=== PATIENT | male | born 1970 | race Caucasian/White ===

== ENCOUNTER 2024-03-24 13:44 | Outpatient (AMB) | payer OTHER, SELFPAY ==
[2024-03-24 13:47] VITALS: BP 152/92; PULSE 86; O2SAT 97; BMI 29.7
--- NOTE | 2024-03-24 13:47 | MHC.PC.OV ---
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: No Accompanied by: Self / Same As Patient Allergies No Known Allergies [No Known Allergies*] Allergy (Verified 03/24/24 13:48) Medication List - Last Reconciled 03/24/24 by Christopher Pelayo MD apixaban (Eliquis) 5 mg PO BID Tobacco use date assessed: 03/24/24 Dental Screening Dental Screen Date: 03/24/24 Did you have a dental visit in the last 12 months?: Yes Did you have a dental problem in the last 6 months where you did not have access to dental care?: No Was dental information given to patient?: Patient has dentist HPI annual exam HPI Details [facility] emb on rx; [facility] Medical History (Updated 03/24/24 @ 14:56 by Christopher Pelayo MD) Pulmonary embolism Surgical History No history of previous surgery Family History (Updated 03/24/24 @ 13:48 by Allie Chacon CMA) Mother Breast cancer Father High cholesterol Brother Colon cancer Social History Housing: House Alcohol intake: current Alcohol intake frequency: a few times a month Alcohol type: wine Patient Tobacco Use Status: Former Tobacco user Tobacco use type: Cigarette e-Cigarette/Vaping Use: Never Used Second Hand Smoke Exposure: No service: No Current occupational status: employed Cognitive needs: No Hearing needs: No Vision needs: No Questionnaire PHQ-9 Over the last 2 weeks, how often have you been bothered by any of the following problems? 1. Little interest or pleasure in doing things: not at all 2. Feeling down, depressed, or hopeless: not at all 3. Trouble falling or staying asleep, or sleeping too much: more than half the days 4. Feeling tired or having little energy: several days 5. Poor appetite or overeating: not at all 6. Feeling bad about yourself - or that you are a failure or have let yourself or your family down: not at all 7. Trouble concentrating on things, such as reading the newspaper or watching television: more than half the days 8. Moving or speaking so slowly that other people could have noticed. Or the opposite - being so fidgety or restless that you have been moving around a lot more than usual: not at all 9. Thoughts that you would be better off or of hurting yourself in some way: not at all Total score: 5 Source: Developed by Drs. Juan Jacobson, Vanita Bustillos, Ryne Quiles and colleagues, with an educational edwin from [employer]. Thrive Questionnaire Date Thrive assessed: 03/24/24 I am a: Patient What is your living situation today?: I have a steady place to live Within the past 12 months, did the food you bought not last and you didn't have the money to get more?: Never true Within the past 12 months, did you worry whether your food would run out before you got money to buy more?: Never true Do you have trouble paying for medicines?: No Do you have trouble getting transportation to medical appointments?: No Do you have trouble paying your heating and electricity bill?: No Do you have trouble taking care of your child, family member or friend?: No Do you have trouble with day-to-day activities such as bathing, preparing meals, shopping, managing finances, etc.?: No Are you currently unemployed and looking for a job?: No Are you interested in more education?: No Please select the resources that you would like help with: None Currently or been in a relationship where the following occur: I choose not to answer THRIVE Score: 0 AUDIT C Alcohol Use Questionnaire (AUDIT-C) 1. How often do you have a drink containing alcohol?: Monthly or less 2. How many drinks containing alcohol do you have on a typical day when you are drinking?: 1 or 2 3. How often do you have six or more drinks on one occasion?: Never Total Score: 1 LOVE-7 AMB Questionnaire LOVE-7 Date LOVE - 7 assessed: 03/24/24 Feeling nervous, anxious, or on edge: 0 = Not at all Not being able to stop or control worryin = Not at all Worrying too much about different things: 0 = Not at all Trouble relaxin = Not at all Being so restless that it is hard to sit still: 0 = Not at all Becoming easily annoyed or irritable: 1 = Several days Feeling afraid as if something awful might happen: 0 = Not at all Total LOVE-7 score (0-4 normal; 5-9 mild; 10-14 moderate; 15-21 severe): 1 Source: Developed by Drs. Juan Jacobson, Vanita Bustillos, Ryne Quiles and colleagues, with an educational edwin from [employer]. Review of Systems Const Denies chills, Denies fatigue, Denies headache(s) and Denies weight loss Eyes Denies change in vision, Denies diplopia and Denies eye pain ENT Denies vertigo, Denies dizziness, Denies headache(s) and Denies nasal discharge Card Denies chest pain, Denies rapid heart rate and Denies dyspnea on exertion Resp Denies chest congestion, Denies cough, Denies pain with cough and Denies dyspnea on exertion GI Denies abdominal pain, Denies hematochezia and Denies change in bowel habits Musc Denies myalgias, Denies arthralgias and Denies joint swelling Skin/Breast Denies lesions and Denies unusual bruising Neuro Denies vertigo, Denies dizziness, Denies headache(s) and Denies focal weakness Endo Denies fatigue Physical exam (Primary Care) Vital Signs: Last Vital Signs Pulse 86 03/24/24 13:47 BP 152/92 H 03/24/24 13:47 Pulse Ox 97 03/24/24 13:47 Oxygen Delivery Method Room Air 03/24/24 13:47 BMI result Body Mass Index 29.7 Tobacco/Smoking Status: Tobacco use Status Tobacco use date assessed 03/24/24 03/24/24 13:51 Patient Tobacco Use Status Former Tobacco user 03/24/24 13:51 Tobacco use type Cigarette 03/24/24 13:51 e-Cigarette/Vaping Use Never Used 03/24/24 13:51 PHQ-9: PHQ-9 Score PHQ-9: Total score 5 03/24/24 14:16 Thrive Assessment: Date of Thrive Assessment Date Thrive assessed 03/24/24 03/24/24 13:51 Currently or been in a relationship where the following occur: I choose not to answer Const General: cooperative, healthy appearing and no acute distress Orientation/consciousness: oriented to person, oriented to place and oriented to time HENMT Head: Yes normal to inspection, Yes normocephalic and Yes atraumatic Mouth: Normal oral and palatal mucosa present and tongue normal Throat: Yes posterior oropharynx normal and Yes uvula midline Eyes General: appearance normal, both eyes and all related structures Neck Neck: Yes normal visual inspection, Yes full ROM and Yes no lymphadenopathy Thyroid: Thyroid normal Carotids: normal carotid upstroke Chest Chest palpation & inspection: normal inspection of the chest Resp Effort & Inspection: normal respiratory effort and able to speak in complete sentences Auscultation: clear to auscultation bilaterally Cardio Jugular venous distension: no JVD Palpation: normal PMI Rate: regular rate Rhythm: regular rhythm Heart sounds: S1 normal heart sound present and S2 normal heart sound present GI Inspection: Yes normal to inspection Palpation (GI): Soft to palpation and No hepatosplenomegaly present Auscultation: normal bowel sounds General: Yes no CVA tenderness Back/Spine/Pelvis Back: no CVA tenderness Skin General skin exam: no rashes or lesions noted Neuro General: oriented to person, oriented to place and oriented to time Extrem General: Yes normal to inspection and Yes full ROM Office Procedures Flu Questionnaire Does the patient have a severe egg allergy?: No Does the patient have severe life threatening allergies?: No Does the patient have a fever or illness today?: No Has the patient ever had Guillain-Lomita Syndrome?: No Has the patient ever had any past reaction to a flu shot?: No Immunizations Fluarix Triv [id number] (PF) 45 mcg (15 mcg x 3)/0.5 mL IM syringe Performing Provider: Christopher Pelayo MD [facility] Administered by: Allie Chacon CMA on 03/24/24 14:18 Dose Route Admin Location Dispensed Lot Number Expiration Date [facility] Commercial Maintenance Technician 0.5 mL IM Left Deltoid 0.5 mL [id number] 10/12/24 [id number] [employer] VIS Given Date VIS Provided VIS Publication Date 03/24/24 Single Vaccine 20 Eligibility Eligibility Date Funding Source Not [facility] Eligible 03/24/24 Private Coding Level of Care Code Est Pt Prev Care 40-64y(41214) Diagnoses Physical exam Z00.00 Pulmonary embolism I26.99 Assessment & Plan Assessment & Plan (1) Physical exam: Code(s): Z00.00 - Encounter for general adult medical examination without abnormal findings Category: Medical Plan: do labs (2) Pulmonary embolism: Code(s): I26.99 - Other pulmonary embolism without acute cor pulmonale Category: Medical Plan: stable; same rx Orders: Orders Lipid Panel Today Z13.220 - Encounter for screening for lipoid disorders Thyroid Stimulating Hormone Today Z13.29 - Encounter for screening for other suspected endocrine disorder Comprehensive [place]. Panel Fast Today Z13.9 - Encounter for screening, unspecified RT home sleep study Today R06.81 - Apnea, not elsewhere classified Influenza [id number] Immunization Today Z23 - Encounter for immunization Complete Blood Count Auto Diff Today Z13.0 - Encounter for screening for diseases of the blood and blood-forming organs and certain disorders involving the immune mechanism
== END 2024-03-24 14:19 | disposition home or self-care (01) ==
PROVIDERS: PCP Internal Medicine; Visit Provider Internal Medicine
DX: Z00.00 Encounter for general adult medical examination without abnormal findings (principal); I26.99 Other pulmonary embolism without acute cor pulmonale; Z23 Encounter for immunization

== ENCOUNTER → 2024-03-24 13:44 | Outpatient (BNVA) | payer OTHER, SELFPAY | PROVIDERS: PCP Internal Medicine; Visit Provider Internal Medicine | DX: Z00.00 Encounter for general adult medical examination without abnormal findings (principal); Z23 Encounter for immunization; I26.99 Other pulmonary embolism without acute cor pulmonale | CPT/HCPCS: 90471; 90656; 96127; 99396 ==

== ENCOUNTER → 2024-04-30 08:53 | Outpatient (REF) | payer OTHER, SELFPAY ==
[2024-04-30 09:24] LABS: MANUAL DIFF FLAG NO
[2024-04-30 09:29] LABS: Basophils Percent Auto 0.4 % (0-2); Eosinophils Absolute Auto 0.2 X10*3/uL (0.0-0.4); Eosinophils Percent Auto 2.9 % (0-4); Hematocrit 45.7 % (42.0-52.0); Hemoglobin 15.3 g/dl (14.0-18.0); Imm Gran Abs Auto 0.02 X10*3/uL (0.00-0.03); Imm Gran Pct Auto 0.3 % (0.0-0.4); Lymphocytes Absolute Auto 1.7 X10*3/uL (1.2-4.9); Lymphocytes Percent Auto 23.8 % (20-40); Mean Corpuscular HGB Conc 33.5 g/dl (31.0-36.0); Mean Corpuscular Hemoglobin 29.9 pg (27.0-33.0); Mean Corpuscular Volume 89.4 fL (80.0-98.0); Mean Platelet Volume 8.6 fL (9.4-12.4); Monocytes Absolute Auto 0.6 X10*3/uL (0.1-1.2); Monocytes Percent Auto 8.2 % (2-11); Neutrophils Absolute Auto 4.5 x10*3/uL (2.0-8.3); Neutrophils Percent Auto 64.4 % (45-73); Platelet Count 213 X10*3/uL (160-400); Red Blood Count 5.11 X10*6/uL (4.60-5.80); Red Cell Distribution Width 13.2 % (11.0-16.0); White Blood Count 6.9 X10*3/uL (4.8-10.8)
[2024-04-30 10:42] LABS: Alanine Aminotransferase 29 U/L (0-40); Albumin Level 4.5 g/dL (3.5-5.0); Anion Gap 13 (12-20); Aspartate Amino Transferase 29 U/L (5-37); Bilirubin Total 0.6 mg/dL (0.0-1.0); Blood Urea Nitrogen 20 mg/dL (9-16); Carbon Dioxide 31 mmol/L (22-29); Chloride 105 mmol/L (96-108); Cholesterol 207 mg/dL (<200); Estimated Glomerular Filt Rate > 60; Glucose Fasting 108 mg/dL (60-99); HDL Cholesterol 36 mg/dL (>40); LDL Cholesterol Calculated 121 mg/dL (<100); Potassium 4.9 mmol/L (3.3-5.1); Sodium 144 mmol/L (135-145); Total Protein 8.1 g/dL (6.5-8.0); Triglycerides 253 mg/dL (<150)
[2024-04-30 11:12] LABS: Alkaline Phosphatase 62 U/L (39-117)
== END ==
LOC: HO.SL 08:53
PROVIDERS: PCP Internal Medicine; Visit Provider Internal Medicine
DX: R06.81 Apnea, not elsewhere classified (principal); Z13.220 Encounter for screening for lipoid disorders; Z13.29 Encounter for screening for other suspected endocrine disorder; Z13.0 Encounter for screening for diseases of the blood and blood-forming organs and certain disorders involving the immune mechanism
CPT/HCPCS: 36415; 80053; 80061; 84443; 85025; 95806

== ENCOUNTER → 2024-04-30 09:46 | Outpatient (BNV) | payer OTHER, SELFPAY | PROVIDERS: PCP Internal Medicine; Visit Provider Internal Medicine | DX: G47.33 Obstructive sleep apnea (adult) (pediatric) (principal) | CPT/HCPCS: 95806 ==

== ENCOUNTER 2024-06-19 10:24 | Outpatient (REF) | payer OTHER, SELFPAY ==
--- OUTSIDE RECORDS SUMMARY | 2024-06-19 11:41 | XMS_ITS | Clinical Summary ---
Author Organization [facility] Address [address] [place] [address] Care Team Providers Care Third Rail Installer Name Role Phone Shayan Prasad MD Primary Care Provider Social History Tobacco Use Types Packs/Day Years Used Date Smoking Tobacco: Former Smokeless Tobacco: Never Alcohol Use Standard Drinks/Week Comments Not Currently 0 (1 standard drink = 0.6 oz pur e alcohol) Sex and Gender Information Value Date Recorded Sex Assigned at Not on file Legal Sex Male 10:15 PM EST Gender Identity Not on file Sexual Orientation Not on file Obstetrics History Last Filed Vital Signs Vital Sign Reading Time Taken Comments Blood Pressure 176/94 08/25/2023 9:48 AM EDT Pulse 99 08/25/2023 9:48 AM EDT Temperature - - Respiratory Rate - - Oxygen Saturation - - Inhaled Oxygen Concentration - - Weight 77.6 kg (171 lb) 11/14/2021 9:10 AM EDT Height 170.2 cm (5' 7 ) 11/14/2021 9:10 AM EDT Body Mass Index 26.78 11/14/2021 9:10 AM EDT Plan of Treatment Health Maintenance Due Date Last Done Comments DTaP,Tdap,and Td Vaccines (1 - Tdap) 1989 Hepatitis B Vaccines (1 of 3 - 19+ 3-dose series) 1989 Pneumococcal Vaccine: 50+ Ye ars (1 of 1 - PCV) 2020 Zoster Vaccines (1 of 2) 2020 Cholesterol Screening (Lipid Panel) 03/17/2022 Colorectal Cancer Screening: Colonoscopy 03/17/2022 Depression Screening 03/17/2022 HIV Screening 03/17/2022 Hepatitis C Screening 03/17/2022 Social Influencers of Health Screening 03/17/2022 COVID-19 Vaccine (1 - 2023-2 5 season) 2023 Influenza Vaccine (#1) 2023 HIB Vaccines Aged Out No longer eligi ble based on patient's age to complete this topic HPV Vaccines Aged Out No longer eligi ble based on patient's age to complete this topic Hepatitis A Vaccines Aged Out No long er eligible based on patient's age to complete this topic IPV Vaccines Aged Out No longer eligi ble based on patient's age to complete this topic MMR Vaccines Aged Out No longer eligi ble based on patient's age to complete this topic Meningococcal ACWY Vaccine Aged Out N o longer eligible based on patient's age to complete this topic Meningococcal B Vacine Aged Out No lo nger eligible based on patient's age to complete this topic Pneumococcal Vaccine: Pediat rics (0 to 5 Years) and At-Risk Patients (6 to 64 Years) Aged Out No longer eligible b ased on patient's age to complete this topic RSV Immunization Patients Un whit[place] 20 months Aged Out No longer eligible b ased on patient's age to complete this topic Varicella Vaccines Aged Out No longer eligible based on patient's age to complete this topic Care Teams Third Rail Installer Relationship Specialty Start Date End Date Shayan Prasad MD [address] [place] [address] [address] DONAVAN Govea PCP - General 09/05/23
--- OUTSIDE RECORDS SUMMARY | 2024-06-19 11:41 | XMS_ITS | Clinical Summary ---
Author Organization [facility] Address [address] [place] [address] Care Team Providers Care Chuck Wagon Cook Name Role Phone Unavailable Primary Care Provider Unavailabl e Source Comments PLEASE NOTE, if this patient is a minor, it may be UNLAWFUL to discuss sensitive information that is contained in these records (such as FAMILY PLANNING, MENTAL HEALTH or SUBSTANCE ABUSE) with the minor patient's parent or other person without the patient's specific authorization.[facility] Immunizations Name Administration Dates Next Due MODERNA COVID-19 VACCINE BIVALENT, BLUE CAP, 6M+ 02/24/2022 Social History Tobacco Use Types Packs/Day Years Used Date Smoking Tobacco: Never Assessed Sex and Gender Information Value Date Recorded Sex Assigned at Not on file Legal Sex Male 8:53 AM PST Gender Identity Not on file Sexual Orientation Not on file Plan of Treatment Health Maintenance Due Date Last Done Comments Diabetes Screening 1970 Hepatitis C Screening 1970 Lipid Screening 1970 Tobacco Screening 1970 HIV Screening 1985 Annual Preventive Care Visit 1988 Hypertension Screening (#1) 1988 Imm-Hepatitis B (1 of 3 - 19 + 3-dose series) 1989 CT Colonography 07/06/2015 Colonoscopy 07/06/2015 Colorectal Cancer Screening 07/06/2015 FIT/gFOBT 07/06/2015 Fecal DNA 07/06/2015 Flexible Sigmoidoscopy 07/06/2015 Imm-Zoster, Recombinant (1 of 2) 2020 [id number] ( season) 2023 02/24/2022, 02/24/2021, 08/06/2020, Additional history exists Imm-Influenza (#1) 2023 01/30/2022, 0 05/28/2019, 03/07/2018, Additional history exists Alcohol and Drug Screen 04/15/2024 Depression Annual Screen 04/15/2024 Imm-DTaP/Tdap/Td (2 - Td or Tdap) 12/04/2027 018 Insurance [facility] Member Subscriber Plan / Payer (Ef fective 2022-Present) Name:Domo Parkinson Relation to Subscriber:Self Name:Domo Parkinson Payer ID:[id number] Group ID:[id number] Type:Medicaid Address: [facility] [address] [place] [address]
--- OUTSIDE RECORDS SUMMARY | 2024-06-19 11:41 | XMS_ITS | Clinical Summary ---
Author Organization [facility] Address [address] [place] [address] Care Team Providers Care Television Service Engineer Name Role Phone Christopher Pelayo MD Primary Care Provider [phone] Allergies No known active allergies Medications Medication Sig Dispensed Refills Start Date End Date Status apixaban (Eliquis) 5 MG TABS tablet Take 5 mg by mouth every 12 (twelve) hours. 0 Active buprenorphine-naloxone (SUBOXONE) 8-2 MG SU[address] SL tablet Place 1 tablet under the tongue daily. 0 Active Active Problems No known active problems Social History Tobacco Use Types Packs/Day Years Used Date Smoking Tobacco: Former Smokeless Tobacco: Never Alcohol Use Standard Drinks/Week Comments Not Currently 0 (1 standard drink = 0.6 oz pur e alcohol) Sex and Gender Information Value Date Recorded Sex Assigned at Not on file Gender Identity Not on file Sexual Orientation Not on file Job Start Date Occupation Industry Not on file Not on file Not on file Last Filed Vital Signs Vital Sign Reading Time Taken Comments Blood Pressure 148/83 11/14/2021 9:10 AM EDT Pulse 83 11/14/2021 9:10 AM EDT Temperature 36.5 ??C (97.7 ??F) 11/14/2021 9:10 AM ED T Respiratory Rate - - Oxygen Saturation 100% 11/14/2021 9:10 AM EDT Inhaled Oxygen Concentration - - Weight 77.6 kg (171 lb) 11/14/2021 9:10 AM EDT Height 170.2 cm (5' 7 ) 11/14/2021 9:10 AM EDT Body Mass Index 26.78 11/14/2021 9:10 AM EDT Plan of Treatment Health Maintenance Due Date Last Done Comments Hepatitis B Vaccines (1 of 3 - 3-dose series) 1970 Hepatitis C Screening 1970 COVID-19 Vaccine (#1) 01/05/1971 Depression Screening 1982 Preventative Health Evaluation 1988 DTap / Tdap / Td (1 - Tdap) 1989 Colon Cancer Screening (Colonoscopy) 07/06/2015 Shingrix-Zoster Vaccine (1 of 2) 2020 Influenza Vaccine (#1) 2023 Pneumococcal Vaccine Aged Out No long er eligible based on patient's age to complete this topic RSV Ped < 20 months Aged Out No longe r eligible based on patient's age to complete this topic Care Teams Television Service Engineer Relationship Specialty Start Date End Date Christopher Pelayo MD [address] [place] [address] [place] [address] PCP - General Internal Medicine 12/13/20
[2024-06-28 00:39] LABS: Testosterone, Total 205 ng/dL (250-1100)
== END 2024-06-19 10:25 | disposition home or self-care (01) ==
LOC: HO.LAB 10:24
PROVIDERS: PCP Internal Medicine; Visit Provider Internal Medicine
DX: R53.83 Other fatigue (principal)
CPT/HCPCS: 36415; 84402; 84403

== ENCOUNTER 2024-08-10 07:34 | Outpatient (AMB) | payer OTHER, SELFPAY ==
[2024-08-10 07:36] VITALS: BP 156/94; PULSE 82; O2SAT 96; BMI 28.9
--- NOTE | 2024-08-10 07:36 | MHC.OFFVIS ---
Vital Signs 08/10/24 07:36 Height 5 ft 6 in Weight 179 lb 3.773 oz BMI 28.9 BP 156/94 H Blood Pressure Location Lt brachial Position Sitting Pulse 82 Pulse Source Pulse Oximeter Pulse Oximetry (%) 96 Oxygen Delivery Method Room Air Intake Visit Reasons: Other specified abnormal findings of blood chem Intake Note: New patient present today for other specified abnormal findings of blood chemistry. Business Liaison Officer Required: No Accompanied by: Self / Same As Patient Allergies No Known Allergies [No Known Allergies*] Allergy (Verified 08/10/24 07:40) Medication List - Last Reconciled 08/10/24 by Marilynn Santamaria MD apixaban (Eliquis) 5 mg PO BID sildenafil (Viagra) 50 mg PO DAILY PRN HPI Comments Details: 54-year-old male here today for initial evaluation of low testosterone levels. has history of PE on elequis, spontaneous PE . Labs from 06/19/2024 done at 10:30 showed total testosterone of 205 which is low and free testosterone by dialysis low at 34. 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 , identifies as heterosexual Ejaculation: normal Decreasing facial hair: none Decreased muscle mass: yes feels some decrease , does landsacping feels reduced strength Low mood: yes Low energy:yes Lack of motivation: yes Decreased endurance:yes Breast enlargement: Current genitalia status change: Puberty/milestones: Fertility: 22 years son with karin sleeps 9 pm to 6 30 am, wakes up 4 times throughout the night, once for urination , but also a light sleeper sleep study April 2024,has mild obstructive sleep apnea Breast enlargement: none Headaches: none Vision changes: none Nipple discharge:none Thyroid review of systems: Patient currently denies heat or cold intolerance, diarrhea or constipation, hair loss, palpitation, anxiety, weight changes, mood changes, low energy, changes in appearance of eyes or vision changes, tremors, increased diaphoresis or dry skin. ? Sense of smell: none Change in shoe size: none Changing in ring size: none History of trauma: none History of radiation: none Lower urinary tract symptoms: none History of sleep apnea: yes Weight changes: none Use of opiates:none None drug use: none Alcohol use disorder: 3-4 drinks per month quit smoking 2009 , smoked for 20 years Physical exam General: sitting comfortably in no acute distress HEENT: normocephalic/atraumatic, Neck: supple, symmetrical, no thyromegaly Cardiac: normal heart sounds Pulm: normal breath sounds B/L, no added breath sounds Abd: not distended, no tenderness Extremities: no edema, no signs of myxedema Neuro: AAO x3, Speech: normal, no facial droop, moving all 4 extremities Laboratory Tests 04/30/24 06/19/24 09:21 10:32 Hgb 15.3 Hct 45.7 Total Protein 8.1 H Triglycerides 253 H Cholesterol 207 H LDL Cholesterol, Calc 121 H HDL Cholesterol 36 L TSH 2.20 Total Testosterone 205 L Fr Testosterone Dialys 34.0 L PFSH Medical History (Updated 07/01/24 @ 10:54 by Christopher Pelayo MD) Pulmonary embolism Surgical History No history of previous surgery Family History Mother Breast cancer Father High cholesterol Brother Colon cancer Social History Housing: House Alcohol intake: current Alcohol intake frequency: a few times a month Alcohol type: wine Patient Tobacco Use Status: Former Tobacco user Tobacco use type: Cigarette e-Cigarette/Vaping Use: Never Used Second Hand Smoke Exposure: No service: No Current occupational status: employed Cognitive needs: No Hearing needs: No Vision needs: No Physical Exam Vital Signs: Last Vital Signs Pulse 82 08/10/24 07:36 BP 156/94 H 08/10/24 07:36 Pulse Ox 96 08/10/24 07:36 Oxygen Delivery Method Room Air 08/10/24 07:36 BMI result Body Mass Index 28.9 Assessment & Plan Assessment & Plan (1) Low testosterone: Code(s): R79.89 - Other specified abnormal findings of blood chemistry Category: Medical Plan: 54-year-old male coming in today for initial evaluation of low testosterone levels. Labs from 06/19/2024 done at 10:30 showed total testosterone of 205 which is low and free testosterone by dialysis low at 34. He is bothered by symptoms of low libido, decreased energy and some decrease in erection. He has been using sildenafil a couple of times which has helped. Since his blood work was done at 10:30, I will have him repeat labs at 08:00. We will also check FSH and LH a differentiate between primary versus hypogonadotropic hypogonadism. I did discuss with the him that his BMI is on the higher side, and being overweight does cause hypogonadotropic hypogonadism so we discussed weight loss measures with both diet and exercise. We discussed lifestyle modification in detail. He also has mild obstructive sleep apnea, treatment of sleep apnea also helps with low testosterone levels. At this time we can try weight management, however if he continues to not be able to lose the weight, he could benefit from a CPAP. Otherwise no history of trauma to the head or testes. No history of radiation to the head. No opiate use. If he indeed does have low testosterone levels, given history of pulmonary embolism, currently on Eliquis, I would have concerns about testosterone replacement therapy in him. Otherwise does not have any history of WI or stroke. No lower urinary tract symptoms. His blood pressure was also noted to be elevated today, I told him that sleep apnea can also contribute to hypertension. He does not have an official diagnosis of hypertension is not on any medications. I told him to discuss with the it was primary care physician hence he probably needs to be started on an antihypertensive medication. Plan: -ordered 08:00 fasting labs -discussed weight management with lifestyle modification -consider treatment of sleep apnea with CPAP, we will defer to PCP -PCP to evaluate for hypertension and start antihypertensive medication -follow up in 6 weeks Plan I spent 45 minutes in reviewing the record, seeing the patient and documenting in the medical record. Orders: Orders Lutenizing Hormone Today R79.89 - Other specified abnormal findings of blood chemistry Sex Hormone Binding Globulin Today R79.89 - Other specified abnormal findings of blood chemistry Testosterone, Free/Total Today R79.89 - Other specified abnormal findings of blood chemistry Bioavailable Testosterone Today R79.89 - Other specified abnormal findings of blood chemistry Follicle Stimulating Hormone Today R79.89 - Other specified abnormal findings of blood chemistry Prolactin Today R79.89 - Other specified abnormal findings of blood chemistry IRON PROFILE Today R79.89 - Other specified abnormal findings of blood chemistry Patient Instructions: Do early AM 8 AM fasting blood work Weight loss counselling ? Limit added sugars to less than 25 grams daily. There are 4.2 grams of sugar per teaspoon of sugar. A teaspoon of honey has 6 grams of sugar! Bread also can have more sugar than you think-check labels ? No soda or juices. Drink water, unsweetened iced tea or seltzer ? Limit eating out/take out or prepared meals to twice weekly at most ? Avoid red meat, hot dogs, bautista and deli meat. Substitute plant protein for animal protein as much as you can. Beans, nuts, tofu, soy milk ? Limit cheese to 1 ounce a few times weekly ? Eat high fiber foods like beans, apples and green veggies, salsa is a great snack with whole grain cracker like Wasa ? Look for the whole grain stamp when choosing bread etc. Aim for 48 grams of whole grains daily. Whole wheat does not equal whole grains! ? Don't keep tempting treats in the house. Go out once in a while for a treat. ? Don't eat anything deep fried or cream based-no sour cream 500 calorie deficit per day to aim for 1 lb weight loss per week LOSE IT ! or my fitness pal Talk to primary care about blood pressure Coding Level of Care Code New Pt Level 4 (54059) Diagnoses Low testosterone R79.89 Time Spent (min) 45
--- OUTSIDE RECORDS SUMMARY | 2024-08-10 07:38 | XMS_ITS | Clinical Summary ---
Author Organization [facility] Address [address] [place] [address] Care Team Providers Care Critical Care Unit Nurse Name Role Phone Unavailable Primary Care Provider Unavailabl e Source Comments PLEASE NOTE, if this patient is a minor, it may be UNLAWFUL to discuss sensitive information that is contained in these records (such as FAMILY PLANNING, MENTAL HEALTH or SUBSTANCE ABUSE) with the minor patient's parent or other person without the patient's specific authorization.[facility] Immunizations Immunization Administration Dates Next Due MODERNA COVID-19 VACCINE [...] Health Maintenance Due Date Last Done Comments Anxiety Screening 1970 Diabetes Screening 1970 Hepatitis C Screening 1970 Lipid Screening 1970 Tobacco Screening 1970 HIV Screening 1985 Hypertension Screening (#1) 1988 Imm-Hepatitis B (1 of 3 - 19 + 3-dose series) 1989 CT Colonography 07/06/2015 Colonoscopy 07/06/2015 Colorectal Cancer Screening 07/06/2015 FIT/gFOBT 07/06/2015 Fecal DNA 07/06/2015 Flexible Sigmoidoscopy 07/06/2015 Imm-Zoster, Recombinant (1 of 2) 2020 [id number] ( season) 2023 02/24/2022, 02/24/2021, 08/06/2020, Additional history exists Imm-Influenza (#1) 2023 01/30/2022, 0 05/28/2019, 03/07/2018, Additional history exists Alcohol and Drug Screen 04/15/2024 Depression Annual Screen 04/15/2024 Imm-DTaP/Tdap/Td (2 - Td or Tdap) 12/04/2027 018 Insurance [facility] Member Subscriber Plan / Payer (Ef fective 2022-Present) Name:Domo Parkinson Relation to Subscriber:Self Name:ParkinsonDomo maddox Payer ID:[id number] Group ID:[id number] Type:Medicaid Address: [facility] [address] [place] [address]
--- OUTSIDE RECORDS SUMMARY | 2024-08-10 07:38 | XMS_ITS | Clinical Summary ---
Author Organization [facility] Address [address] [place] [address] Care Team Providers Care Sales Representative Meats Name Role Phone Christopher Pelayo MD Primary Care Provider [phone] Allergies No known active allergies Medications Medication [...] age to complete this topic Care Teams Sales Representative Meats Relationship Specialty Start Date End Date Christopher Pelayo MD [address] [place] [address] [place] [address] PCP - General Internal Medicine 12/13/20
--- OUTSIDE RECORDS SUMMARY | 2024-08-10 07:38 | XMS_ITS | Clinical Summary ---
Author Organization [facility] Address [address] [place] [address] Care Team Providers Care Climatology Professor Name Role Phone Shayan Prasad MD Primary [...] - 2023-2 5 season) 2023 Influenza Vaccine (Season Ended) 2024 HIB Vaccines Aged Out No longer eligi [...] age to complete this topic Meningococcal B Vaccine Aged Out No l onger eligible based on patient's age to complete [...] age to complete this topic Care Teams Climatology Professor Relationship Specialty Start Date End Date Shayan Prasad MD [address] [place] [address] Dr [address] DONAVAN Govea PCP - General 09/05/23
== END 2024-08-10 08:31 | disposition home or self-care (01) ==
LOC: HO.ENCR 07:34
PROVIDERS: PCP Internal Medicine; Visit Provider Student in an Organized Health Care Education/Training Program
DX: R79.89 Other specified abnormal findings of blood chemistry (principal)
CPT/HCPCS: 99204

== ENCOUNTER → 2024-08-10 07:34 | Outpatient (BNVA) | payer OTHER, SELFPAY | PROVIDERS: PCP Internal Medicine; Visit Provider Student in an Organized Health Care Education/Training Program | DX: R79.89 Other specified abnormal findings of blood chemistry (principal) | CPT/HCPCS: 99202 ==

== ENCOUNTER 2024-08-26 08:20 | Outpatient (AMB) | payer OTHER, SELFPAY ==
--- NOTE | 2024-08-26 08:25 | A.OFFPC_ITS ---
Vital Signs 08/26/24 08:27 08/26/24 09:07 Height 5 ft 6 in Weight 173 lb BMI 27.9 BP 130/70 150/92 H Blood Pressure Location Lt brachial Lt brachial Position Sitting Sitting Pulse 68 Pulse Source Pulse Oximeter Temp 97.1 F Temp Source Temporal Artery Scan Pulse Oximetry (%) 98 Oxygen Delivery Method Room Air Intake Visit Reasons: [place] DR Pelayo/ 6 month f/u Intake Note: Patient is here today for [place] from Dr Pelayo and Pulmonary embolism Commercial Art Instructor Required: No Nurse Monitoring: Not Required per policy Accompanied by: Self / Same As Patient Allergies No Known Allergies [No Known Allergies*] Allergy (Verified 08/26/24 09:07) Medication List - Last Reconciled 08/26/24 by JUS Oneil apixaban (Eliquis) 5 mg PO BID atorvastatin 10 mg PO BEDTIME lisinopril 5 mg PO DAILY sildenafil (Viagra) 50 mg PO DAILY PRN Tobacco use date assessed: 08/26/24 Dental Screening Dental Screen Date: 08/26/24 Did you have a dental visit in the last 12 months?: Yes Did you have a dental problem in the last 6 months where you did not have access to dental care?: No Was dental information given to patient?: Patient has dentist HPI [place] DR Pelayo/ 6 month f/u HPI Details The patient is a 54-year-old male presenting to transition care from Dr. Pelayo and to follow with hypertension, hyperlipidemia, and sleep apnea concerns. He has a history of pulmonary embolism four years ago linked to Factor V Leiden mutation, for which he takes Eliquis. The patient's blood pressure readings remain high, with values such as 150/94 mmHg reported. Hypertension management and home monitoring have been discussed. There is a family history of heart disease, and the patient has untreated sleep apnea due to mild classification by insurance. The patient reports fatigue and sleep disturbances. Anxiety is mildly present, manifesting as irritability and feeling on edge. He sought an anesthesia attending for low testosterone, advised weight loss before considering hormone therapy due to embolism history. [facility] Medical History (Updated 08/26/24 @ 09:13 by JUS Oneil) Pulmonary embolism Surgical History No history of previous surgery Family History Mother Breast cancer Father High cholesterol Brother Colon cancer Social History Housing: House Alcohol intake: current Alcohol intake frequency: a few times a month Alcohol type: wine Patient Tobacco Use Status: Former Tobacco user Tobacco use type: Cigarette e-Cigarette/Vaping Use: Never Used Second Hand Smoke Exposure: Yes service: No Current occupational status: employed Cognitive needs: No Hearing needs: No Vision needs: No Questionnaire PHQ-9 Over the last 2 weeks, how often have you been bothered by any of the following problems? 1. Little interest or pleasure in doing things: not at all 2. Feeling down, depressed, or hopeless: not at all 3. Trouble falling or staying asleep, or sleeping too much: several days 4. Feeling tired or having little energy: several days 5. Poor appetite or overeating: not at all 6. Feeling bad about yourself - or that you are a failure or have let yourself or your family down: not at all 7. Trouble concentrating on things, such as reading the newspaper or watching television: not at all 8. Moving or speaking so slowly that other people could have noticed. Or the opposite - being so fidgety or restless that you have been moving around a lot more than usual: not at all 9. Thoughts that you would be better off or of hurting yourself in some way: not at all Total score: 2 Depression Screening Interpretation: Positive Depression Screening Done: Yes Source: Developed by Drs. Juan Jacobson, Vanita Bustillos, Ryne Quiles and colleagues, with an educational edwin from [employer]. Thrive Questionnaire Date Thrive assessed: 08/26/24 I am a: Patient What is your living situation today?: I have a steady place to live Within the past 12 months, did the food you bought not last and you didn't have the money to get more?: Never true Within the past 12 months, did you worry whether your food would run out before you got money to buy more?: Never true Do you have trouble paying for medicines?: No Do you have trouble getting transportation to medical appointments?: No Do you have trouble paying your heating and electricity bill?: No Do you have trouble taking care of your child, family member or friend?: No Do you have trouble with day-to-day activities such as bathing, preparing meals, shopping, managing finances, etc.?: No Are you currently unemployed and looking for a job?: No Are you interested in more education?: No Please select the resources that you would like help with: None Currently or been in a relationship where the following occur: No concerns reported THRIVE Score: 0 AUDIT C Alcohol Use Questionnaire (AUDIT-C) 1. How often do you have a drink containing alcohol?: Never 3. How often do you have six or more drinks on one occasion?: Never Total Score: 0 LOVE-7 AMB Questionnaire LOVE-7 Date LOVE - 7 assessed: 08/26/24 Feeling nervous, anxious, or on edge: 2 = More than half the days Not being able to stop or control worryin = Not at all Worrying too much about different things: 0 = Not at all Trouble relaxin = Several days Being so restless that it is hard to sit still: 0 = Not at all Becoming easily annoyed or irritable: 1 = Several days Feeling afraid as if something awful might happen: 0 = Not at all Total LOVE-7 score (0-4 normal; 5-9 mild; 10-14 moderate; 15-21 severe): 4 Source: Developed by Drs. Juan Jacobson, Vanita Bustillos, Ryne Quiles and colleagues, with an educational edwni from [employer]. Review of Systems Const Denies headache(s) and Reports lethargy Eyes Denies loss of vision ENT Denies vertigo, Denies dizziness, Denies headache(s), Reports nasal obstruction and Denies sore throat Card Denies chest pain, Denies leg edema and Denies lightheadedness Resp Denies cough, Denies hemoptysis and Denies wheezing GI Denies abdominal pain, Denies melena, Denies constipation, Denies diarrhea and Denies vomiting Denies dysuria, Denies urinary frequency and Denies urinary urgency Musc Denies arthralgias, Denies joint swelling, Denies numbness and Denies tingling Neuro Denies Abnormal speech present, Denies vertigo, Denies dizziness, Denies headache(s), Denies loss of vision, Denies memory loss, Denies numbness and Denies tingling Psych Reports anxiety (Mild-irritability often while driving), Denies depression, Denies memory loss and Denies panic attacks Arcenio/Lymph Denies easy bleeding and Denies easy bruising Aller/Immun Denies wheezing Physical exam (Primary Care) Vital Signs: Last Vital Signs Temp 97.1 F 08/26/24 08:27 Pulse 68 08/26/24 08:27 BP 130/70 08/26/24 08:27 Pulse Ox 98 08/26/24 08:27 Oxygen Delivery Method Room Air 08/26/24 08:27 BMI result Body Mass Index 27.9 Tobacco/Smoking Status: Tobacco use Status Tobacco use date assessed 08/26/24 08/26/24 08:31 Patient Tobacco Use Status Former Tobacco user 08/26/24 08:31 Tobacco use type Cigarette 08/26/24 08:31 e-Cigarette/Vaping Use Never Used 08/26/24 08:31 PHQ-9: PHQ-9 Score PHQ-9: Total score 2 08/26/24 08:31 Depression Screening Interpretation: Positive Thrive Assessment: Date of Thrive Assessment Date Thrive assessed 08/26/24 08/26/24 08:31 Currently or been in a relationship where the following occur: No concerns reported Const General: healthy appearing, no acute distress, alert and awake Nutritional Appearance: well nourished Orientation/consciousness: oriented to person, oriented to place and oriented to time HENMT Ears: TM's normal bilaterally General nose exam: Normal nasal mucous membranes and turbinates present Eyes Conjunctivae: conjunctivae normal Sclerae: sclerae normal Pupils: Equal, round and reactive pupils present Neck Neck: Yes no lymphadenopathy and Yes no JVD Thyroid: Thyroid normal Carotids: no bruits Resp Effort & Inspection: normal respiratory effort and not tachypneic Auscultation: no crackles, no rales, no rhonchi and no wheezes Cardio Rate: regular rate Rhythm: regular rhythm Heart sounds: no murmurs and normal S1 and S2 GI Palpation (GI): Soft to palpation, nontender, no hepatomegaly and no splenomegaly Auscultation: normal bowel sounds Skin General skin exam: no rashes or lesions noted and dry skin Neuro General: oriented to person, oriented to place and oriented to time Cranial nerves: Yes Equal, round and reactive pupils present Speech: No Abnormal speech present Gait exam (Neuro): Normal gait present Motor exam (neuro): no tremor noted Extrem Right upper extremity: full ROM Left upper extremity: full ROM Right lower extremity: full ROM; no edema Left lower extremity: full ROM; no edema Psych Mental Status: mental status grossly normal Speech and movement: Normal speech and movement present Affect: normal affect Attitude: cooperative Thought process: Normal thought process present Coding Level of Care Code Est Pt Level 3 (66007) Diagnoses Elevated blood pressure reading in office with diagnosis of hypertension I10 Mixed hypercholesterolemia and hypertriglyceridemia E78.2 Impaired fasting glucose R73.01 Chronic pulmonary embolism without acute cor pulmonale, unspecified pulmonary embolism type I27.82 Pulmonary embolism type: unspecified Chronicity: chronic Acute cor pulmonale presence: without acute cor pulmonale Low testosterone R79.89 Time Spent (min) 32 Assessment & Plan Assessment & Plan (1) Elevated blood pressure reading in office with diagnosis of hypertension: Code(s): I10 - Essential (primary) hypertension Category: Medical (2) Mixed hypercholesterolemia and hypertriglyceridemia: Code(s): E78.2 - Mixed hyperlipidemia Category: Medical (3) Impaired fasting glucose: Code(s): R73.01 - Impaired fasting glucose Category: Medical (4) Pulmonary embolism: Code(s): I26.99 - Other pulmonary embolism without acute cor pulmonale Category: Medical Qualifiers: Pulmonary embolism type: unspecified Chronicity: chronic Acute cor pulmonale presence: without acute cor pulmonale Qualified Code(s): I27.82 - Chronic pulmonary embolism (5) Low testosterone: Code(s): R79.89 - Other specified abnormal findings of blood chemistry Category: Medical Plan I have advised initiating lisinopril therapy at 5 mg daily to manage hypertension and atorvastatin taken at bedtime to address hyperlipidemia. The patient is to focus on weight management will help with sleep apnea. Periodic monitoring of blood pressure at home is suggested, with a follow-up in 4 weeks for further assessment of treatment effectiveness and adjustments as necessary. Management of mild anxiety will include ongoing evaluation of contributing factors without immediate pharmacological intervention. Reinforced low cholesterol, carbohydrate diet and activity as tolerated. Impaired fasting glucose, we will add a A1c to labs. Patient was informed and verbally consented to the use of an ambient scribe for clinic note documentation during this visit. Orders: Orders TSH reflex Free T4 Today E78.2 - Mixed hyperlipidemia, I10 - Essential (primary) hypertension, I26.99 - Other pulmonary embolism without acute cor pulmonale, R79.89 - Other specified abnormal findings of blood chemistry, Z00.00 - Encounter for general adult medical examination without abnormal findings Vitamin D 25-OH Total Today E78.2 - Mixed hyperlipidemia, I10 - Essential (primary) hypertension, I26.99 - Other pulmonary embolism without acute cor pulmonale, R79.89 - Other specified abnormal findings of blood chemistry, Z00.00 - Encounter for general adult medical examination without abnormal findings Hemoglobin A1c Today R73.01 - Impaired fasting glucose Complete Blood Count Auto Diff Today E78.2 - Mixed hyperlipidemia, I10 - Essential (primary) hypertension, I26.99 - Other pulmonary embolism without acute cor pulmonale, R79.89 - Other specified abnormal findings of blood chemistry, Z00.00 - Encounter for general adult medical examination without abnormal findings Comprehensive [place]. Panel Fast Today E78.2 - Mixed hyperlipidemia, I10 - Essential (primary) hypertension, I26.99 - Other pulmonary embolism without acute cor pulmonale, R79.89 - Other specified abnormal findings of blood chemistry, Z00.00 - Encounter for general adult medical examination without abnormal findings Lipid Panel Today E78.2 - Mixed hyperlipidemia, I10 - Essential (primary) hypertension, I26.99 - Other pulmonary embolism without acute cor pulmonale, R79.89 - Other specified abnormal findings of blood chemistry, Z00.00 - En counter for general adult medical examination without abnormal findings UA CC w/rflx Micro + Cult Today E78.2 - Mixed hyperlipidemia, I10 - Essential (primary) hypertension, I26.99 - Other pulmonary embolism without acute cor pulmonale, R79.89 - Other specified abnormal findings of blood chemistry, Z00.00 - Encounter for general adult medical examination without abnormal findings Glucose Fasting Today E78.2 - Mixed hyperlipidemia, I10 - Essential (primary) hypertension, I26.99 - Other pulmonary embolism without acute cor pulmonale, R79.89 - Other specified abnormal findings of blood chemistry, Z00.00 - Encounter for general adult medical examination without abnormal findings Medications: New atorvastatin 10 mg PO BEDTIME 90 tabs 3RF lisinopril 5 mg PO DAILY 30 tabs 3RF I10 - Essential (primary) hypertension Patient Instructions: - Start taking lisinopril 5 mg daily to lower blood pressure. - Take atorvastatin at bedtime to help manage cholesterol levels. - Monitor your blood pressure at home twice daily and keep a record. - Aim to lose weight for overall health improvement. - Come back for blood tests and follow up in 3 months, or sooner if needed. - Consider increasing intake of [id number] foods or fish oil supplements. - Contact the office with any concerns or unusual symptoms between visits.
[2024-08-26 08:27] VITALS: BP 130/70; PULSE 68; TEMP 36.2; O2SAT 98; BMI 27.9
--- OUTSIDE RECORDS SUMMARY | 2024-08-26 08:32 | XMS_ITS | Clinical Summary ---
Author Organization [facility] Address [id number] [place] [id number] Care Team Providers Care Egg Caser Name Role Phone Shayan Prasad MD Primary [...] age to complete this topic Care Teams Egg Caser Relationship Specialty Start Date End Date Shayan Prasad MD [address] [place] [address] Dr [address] DONAVAN Govea PCP - General 09/05/23
--- OUTSIDE RECORDS SUMMARY | 2024-08-26 08:32 | XMS_ITS | Clinical Summary ---
Author Organization [facility] Address [address] [place] [address] Care Team Providers Care Compressor Station Engineer Chief Name Role Phone Unavailable Primary Care Provider [...] 07/06/2015 Imm-Zoster, Recombinant (1 of 2) 2020 [id number]-73 ( season) 2023 02/24/2022, 02/24/2021, 08/06/2020, Additional history exists Imm-Influenza (#1) 2023 01/30/2022, 0 05/28/2019, 03/07/2018, Additional history exists Alcohol and Drug Screen 04/15/2024 Depression Annual Screen 04/15/2024 Imm-DTaP/Tdap/Td (2 - Td or Tdap) 12/04/2027 018 Insurance [facility] PLAN Member Subscriber Plan / Payer (Ef fective 2022-Present) Name:Domo Parkinson Relation to Subscriber:Self Name:ParkinsonDomo maddox Payer ID:[id number] Group ID:[id number] Type:Medicaid Address: [facility] [address] [place] [address]
--- OUTSIDE RECORDS SUMMARY | 2024-08-26 08:32 | XMS_ITS | Clinical Summary ---
Author Organization [facility] Address [address] [place] [address] Care Team Providers Care Public Health Educator Name Role Phone Christopher Pelayo MD Primary Care Provider [phone] Allergies No known active allergies Medications Medication [...] age to complete this topic Care Teams Public Health Educator Relationship Specialty Start Date End Date Christopher Pelayo MD [address] [place] [address] [place] [address] PCP - General Internal Medicine 12/13/20
[2024-08-26 09:07] VITALS: BP 150/92
== END 2024-08-26 09:14 | disposition home or self-care (01) ==
LOC: HO.HMCH 08:21
DX: I10 Essential (primary) hypertension (principal); E78.2 Mixed hyperlipidemia; R73.01 Impaired fasting glucose; I27.82 Chronic pulmonary embolism; R79.89 Other specified abnormal findings of blood chemistry

== ENCOUNTER → 2024-08-26 08:20 | Outpatient (BNVA) | payer OTHER, SELFPAY | DX: I10 Essential (primary) hypertension (principal); G47.30 Sleep apnea, unspecified; D68.51 Activated protein C resistance; E78.2 Mixed hyperlipidemia; R73.01 Impaired fasting glucose; I27.82 Chronic pulmonary embolism; R79.89 Other specified abnormal findings of blood chemistry; Z79.01 Long term (current) use of anticoagulants | CPT/HCPCS: 99212 ==

== ENCOUNTER 2024-08-31 07:20 | Outpatient (REF) | payer OTHER, SELFPAY ==
--- OUTSIDE RECORDS SUMMARY | 2024-08-31 07:22 | XMS_ITS | Clinical Summary ---
Author Organization [facility] Address [address] [place] [address] Care Team Providers Care Baby Formula Mixer Name Role Phone Unavailable Primary Care Provider [...] 07/06/2015 Imm-Zoster, Recombinant (1 of 2) 2020 Ale-PJBUT-58 ( season) 2023 02/24/2022, 02/24/2021, 08/06/2020, Additional history exists Imm-Influenza (#1) 2023 01/30/2022, 0 05/28/2019, 03/07/2018, Additional history exists Alcohol and Drug Screen 04/15/2024 Depression Annual Screen 04/15/2024 Imm-DTaP/Tdap/Td (2 - Td or Tdap) 12/04/2027 018 Insurance [facility] PLAN Member Subscriber Plan / Payer (Ef fective 2022-Present) Name:Domo Parkinson Relation to Subscriber:Self Name:ParkinsonDomo maddox Payer ID:[id number] Group ID:[id number] Type:Medicaid Address: [facility] [address] [place] [address]
--- OUTSIDE RECORDS SUMMARY | 2024-08-31 07:22 | XMS_ITS | Clinical Summary ---
Author Organization [facility] Address [id number] [place] [phone] Care Team Providers Care Slasher Machine Operator Name Role Phone Shyaan Prasad MD Primary Care Provider Social History [...] age to complete this topic Care Teams Slasher Machine Operator Relationship Specialty Start Date End Date Shayan Prasad MD [address] [place] [address] Dr [address] DONAVAN Govea PCP - General 09/05/23
--- OUTSIDE RECORDS SUMMARY | 2024-08-31 07:22 | XMS_ITS | Clinical Summary ---
Author Organization [facility] Address [address] [place] [address] Care Team Providers Care Processing Rep Name Role Phone Christopher Pelayo MD Primary Care Provider [phone] Allergies No known active allergies Medications Medication [...] age to complete this topic Care Teams Processing Rep Relationship Specialty Start Date End Date Christopher Pelayo MD [address] [place] [address] [place] [address] PCP - General Internal Medicine 12/13/20
[2024-08-31 07:30] LABS: MANUAL DIFF FLAG NO
[2024-08-31 08:03] LABS: Basophils Percent Auto 0.5 % (0-2); Eosinophils Absolute Auto 0.2 X10*3/uL (0.0-0.4); Eosinophils Percent Auto 2.6 % (0-4); Hematocrit 45.8 % (42.0-52.0); Imm Gran Abs Auto 0.03 X10*3/uL (0.00-0.03); Imm Gran Pct Auto 0.4 % (0.0-0.4); Lymphocytes Absolute Auto 1.8 X10*3/uL (1.2-4.9); Mean Corpuscular HGB Conc 32.8 g/dl (31.0-36.0); Mean Corpuscular Hemoglobin 29.2 pg (27.0-33.0); Mean Corpuscular Volume 89.3 fL (80.0-98.0); Mean Platelet Volume 9.6 fL (9.4-12.4); Monocytes Absolute Auto 0.6 X10*3/uL (0.1-1.2); Monocytes Percent Auto 7.5 % (2-11); Neutrophils Absolute Auto 4.8 x10*3/uL (2.0-8.3); Platelet Count 227 X10*3/uL (160-400); Red Blood Count 5.13 X10*6/uL (4.60-5.80); Red Cell Distribution Width 13.2 % (11.0-16.0); White Blood Count 7.4 X10*3/uL (4.8-10.8)
[2024-08-31 08:08] LABS: Estimated Average Glucose 111 mg/dL; Hemoglobin A1C 140.0415 umol/L; Hemoglobin A1c % 5.5 % (<6.0); Total Hemoglobin (HGBA1C) 3855.0815 umol/L
[2024-08-31 08:46] LABS: Glucose Fasting 116 mg/dL (60-99)
[2024-08-31 08:48] LABS: Alanine Aminotransferase 25 U/L (0-40); Albumin Level 4.4 g/dL (3.5-5.0); Alkaline Phosphatase 62 U/L (39-117); Anion Gap 12 (12-20); Aspartate Amino Transferase 27 U/L (5-37); Bilirubin Total 0.7 mg/dL (0.0-1.0); Blood Urea Nitrogen 22 mg/dL (9-16); Calcium 9.1 mg/dL (8.4-10.2); Carbon Dioxide 28 mmol/L (22-29); Chloride 107 mmol/L (96-108); Cholesterol 183 mg/dL (<200); Estimated Glomerular Filt Rate > 60; Glucose Fasting 115 mg/dL (60-99); HDL Cholesterol 41 mg/dL (>40); Iron 103 mcg/dL (45-160); LDL Cholesterol Calculated 113 mg/dL (<100); Percent Iron Saturation 38 % (15-50); Potassium 4.7 mmol/L (3.3-5.1); Sodium 142 mmol/L (135-145); Total Iron Binding Capacity 272 mcg/dL (228-428); Total Protein 7.6 g/dL (6.5-8.0); Triglycerides 148 mg/dL (<150); Unsaturated Iron Binding 169 ug/dL
[2024-08-31 08:51] LABS: Appearance Urine Clear; Color Urine Yellow; Glucose Urine UA Negative (Negative); Leukocyte Esterase Urine Negative (Negative); Nitrite Urine Negative (Negative); Urine Blood Negative (Negative); Urine Ketones Negative (Negative); Urine Protein Negative (Neg-Trace)
[2024-08-31 09:08] LABS: TSH reflex Free T4 1.96 uIU/mL (0.32-4.0); Vitamin D 25-OH Total 36.3 ng/mL (>30)
[2024-09-01 12:28] LABS: Follicle Stimulating Hormone 11.3 mIU/mL (1.4-12.8); Lutenizing Hormone 2.7 mIU/mL (1.5-9.3); Prolactin 2.7 ng/mL (2.0-18.0)
[2024-09-04 23:43] LABS: Sex Hormone Binding Globulin 40 nmol/L (10-50); Testosterone-Albumin 4.5 g/dL (3.6-5.1); Testosterone-Bioavailable 73.3 ng/dL (110.0-575.0); Testosterone-Free 35.6 pg/mL (46.0-224.0); Testosterone-Total 327 ng/dL (250-1100)
== END 2024-08-31 07:21 | disposition home or self-care (01) ==
LOC: HO.LAB 07:20
PROVIDERS: Student in an Organized Health Care Education/Training Program
DX: Z00.00 Encounter for general adult medical examination without abnormal findings (principal); R79.89 Other specified abnormal findings of blood chemistry; I26.99 Other pulmonary embolism without acute cor pulmonale; I10 Essential (primary) hypertension; E78.2 Mixed hyperlipidemia; R73.01 Impaired fasting glucose
CPT/HCPCS: 36415; 80053; 80061; 81003; 82306; 82947; 83001; 83002; 83036; 83540; 84146; 84270; 84402; 84403; 84443; 85025

== ENCOUNTER 2024-09-21 08:32 | Outpatient (AMB) | payer OTHER, SELFPAY ==
[2024-09-21 08:33] VITALS: BP 130/80; PULSE 98; O2SAT 98; BMI 28.4
--- NOTE | 2024-09-21 08:33 | A.OFFVIS_ITS ---
Vital Signs 09/21/24 08:33 Height 5 ft 6 in Weight 175 lb 11.335 oz BMI 28.4 BP 130/80 Blood Pressure Location Lt brachial Position Sitting Pulse 98 Pulse Source Pulse Oximeter Pulse Oximetry (%) 98 Oxygen Delivery Method Room Air Intake Visit Reasons: Other specified abnormal findings of blood chem Intake Note: Patient present today for Other specified abnormal findings of blood chemistry. Filer Helper Required: No Accompanied by: Self / Same As Patient Allergies No Known Allergies [No Known Allergies*] Allergy (Verified 09/21/24 08:37) Medication List - Last Reconciled 09/21/24 by Marilynn Santamaria MD apixaban (Eliquis) 5 mg PO BID atorvastatin 10 mg PO BEDTIME lisinopril 5 mg PO DAILY sildenafil (Viagra) 50 mg PO DAILY PRN HPI Comments Details: 54-year-old male here today for follow up of low testosterone levels. has history of PE on elequis, spontaneous PE . HPI Labs from 06/19/2024 done at 10:30 showed total testosterone of 205 which is low and free testosterone by dialysis low at 34. Low testosterone level: Symptoms: Decreased libido: yes Erectile dysfunction: feels spontaneous erections has decreased over the past couple of years but still able to get erections during sexual intercourse using sildenafil a couple of times has helped Has one usp partner- karin , identifies as heterosexual Ejaculation: normal Decreasing facial hair: none Decreased muscle mass: yes feels some decrease , does landsacping feels reduced strength Low mood: yes Low energy:yes Lack of motivation: yes Decreased endurance:yes Breast enlargement: Current genitalia status change: Puberty/milestones: Fertility: 22 years son with figovind sleeps 9 pm to 6 30 am, wakes up 4 times throughout the night, once for urination , but also a light sleeper sleep study April 2024,has mild obstructive sleep apnea Breast enlargement: none Headaches: none Vision changes: none Nipple discharge:none Thyroid review of systems: Patient currently denies heat or cold intolerance, diarrhea or constipation, hair loss, palpitation, anxiety, weight changes, mood changes, low energy, changes in appearance of eyes or vision changes, tremors, increased diaphoresis or dry skin. ? Sense of smell: none Change in shoe size: none Changing in ring size: none History of trauma: none History of radiation: none Lower urinary tract symptoms: none History of sleep apnea: yes Weight changes: none Use of opiates:none None drug use: none Alcohol use disorder: 3-4 drinks per month quit smoking 2009 , smoked for 20 years Interval history Labs repeated 08/31/2024, showed normal hemoglobin, normal kidney function, low normal total testosterone of 327, mildly low free testosterone of 35.6, SHBG normal at 40, these labs were done at 07:30, normal iron panel, normal thyroid function and prolactin level, LH and FSH within normal range. Consistent with mild hypogonadotropic hypogonadism possibly likely in the setting of being overweight/NINFA. He is still has not been able to get insurance to cover his sleep apnea mask. He has increased his activity, incorporating some aerobic workouts with a his son. Trying to focus on calorie counting. Weight decreased by 4 lb since last visit over the past 6-8 weeks. Physical exam General: sitting comfortably in no acute distress HEENT: normocephalic/atraumatic, Neck: supple, symmetrical, no thyromegaly Cardiac: normal heart sounds Pulm: normal breath sounds B/L, no added breath sounds Abd: not distended, no tenderness Extremities: no edema, no signs of myxedema Neuro: AAO x3, Speech: normal, no facial droop, moving all 4 extremities Laboratory Tests 04/30/24 06/19/24 09:21 10:32 Hgb 15.3 Hct 45.7 Total Protein 8.1 H Triglycerides 253 H Cholesterol 207 H LDL Cholesterol, Calc 121 H HDL Cholesterol 36 L TSH 2.20 Total Testosterone 205 L Fr Testosterone Dialys 34.0 L Laboratory Tests 08/31/24 07:28 Hgb 15.0 Hct 45.8 Creatinine 0.83 Estimated GFR > 60 Hemoglobin A1c % 5.5 Iron 103 TIBC 272 % Saturation 38 Unsat Iron Binding 169 TSH 1.96 FSH 11.3 Luteinizing Hormone 2.7 Prolactin 2.7 Testosterone Level 327 Free Testoster w SHBG 35.6 L Bioavail Testosterone 73.3 L Sex Hormone Bind Glob 40 PFSH Medical History (Updated 08/26/24 @ 09:13 by JUS Oneil) Pulmonary embolism Surgical History No history of previous surgery Family History Mother Breast cancer Father High cholesterol Brother Colon cancer Social History Housing: House Alcohol intake: current Alcohol intake frequency: a few times a month Alcohol type: wine Patient Tobacco Use Status: Former Tobacco user Tobacco use type: Cigarette e-Cigarette/Vaping Use: Never Used Second Hand Smoke Exposure: Yes service: No Current occupational status: employed Cognitive needs: No Hearing needs: No Vision needs: No Physical Exam Vital Signs: Last Vital Signs Pulse 98 09/21/24 08:33 BP 130/80 09/21/24 08:33 Pulse Ox 98 09/21/24 08:33 Oxygen Delivery Method Room Air 09/21/24 08:33 BMI result Body Mass Index 28.4 Assessment & Plan Assessment & Plan (1) Low testosterone: Code(s): R79.89 - Other specified abnormal findings of blood chemistry Category: Medical Plan: 54-year-old male coming in today for follow up of low testosterone levels. Labs from 06/19/2024 done at 10:30 showed total testosterone of 205 which is low and free testosterone by dialysis low at 34. He is bothered by symptoms of low libido, decreased energy and some decrease in erection. He has been using sildenafil a couple of times which has helped. I did discuss with the him that his BMI is on the higher side, and being overweight does cause hypogonadotropic hypogonadism so we discussed weight loss measures with both diet and exercise. We discussed lifestyle modification in detail. He also has mild obstructive sleep apnea, treatment of sleep apnea also helps with low testosterone levels. Otherwise no history of trauma to the head or testes. No history of radiation to the head. No opiate use. Labs repeated 08/31/2024, showed normal hemoglobin, normal kidney function, low normal total testosterone of 327, mildly low free testosterone of 35.6, SHBG normal at 40, these labs were done at 07:30, normal iron panel, normal thyroid function and prolactin level, LH and FSH within normal range. Consistent with mild hypogonadotropic hypogonadism most likely in the setting of being overweight/NINFA. He is still has not been able to get insurance to cover his sleep apnea mask. I would highly encourage him to talk to his PCP regarding getting sleep apnea mass, he might need referral to sleep specialist, this would help with improving his testosterone levels, controlling his blood pressure better. He does definitely have very disturbed sleep, and wakes up 4 times at night, that is also likely contributing to some of his tiredness. given history of pulmonary embolism, currently on Eliquis, I would have concerns about testosterone replacement therapy in him. Otherwise does not have any history of WI or stroke. No lower urinary tract symptoms. Plan: -discussed weight management with lifestyle modification -again encouraged treatment of sleep apnea with CPAP, patient will talk to his PCP about this -follow up in 4 months with repeat labs done early 08:00 fasting done 2 weeks prior to follow up Plan See above Orders: Orders Bioavailable Testosterone 4 Months R7. - Other specified abnormal findings of blood chemistry Follicle Stimulating Hormone 4 Months R7. - Other specified abnormal f indings of blood chemistry Testosterone, Free/Total 4 Months R7. - Other specified abnormal findings of blood chemistry Sex Hormone Binding Globulin 4 Months R7. - Other specified abnormal findings of blood chemistry Lutenizing Hormone 4 Months R7. - Other specified abnormal findings of blood chemistry Patient Instructions: Weight loss counselling ? Limit added sugars to less than 25 grams daily. There are 4.2 grams of sugar per teaspoon of sugar. A teaspoon of honey has 6 grams of sugar! Bread also can have more sugar than you think-check labels ? No soda or juices. Drink water, unsweetened iced tea or seltzer ? Limit eating out/take out or prepared meals to twice weekly at most ? Avoid red meat, hot dogs, bautista and deli meat. Substitute plant protein for animal protein as much as you can. Beans, nuts, tofu, soy milk ? Limit cheese to 1 ounce a few times weekly ? Eat high fiber foods like beans, apples and green veggies, salsa is a great snack with whole grain cracker like Wasa ? Look for the whole grain stamp when choosing bread etc. Aim for 48 grams of whole grains daily. Whole wheat does not equal whole grains! ? Don't keep tempting treats in the house. Go out once in a while for a treat. ? Don't eat anything deep fried or cream based-no sour cream 30 mins 5 days a week of aerobic exercise , 2-3 days of resistance training Do early fasting 7 30 AM to 8 AM blood work 2 weeks prior to your next appointme nt in 4 months Follow up in January 2025 Coding Level of Care Code Est Pt Level 3 (91554) Diagnoses Low testosterone R79.89
--- OUTSIDE RECORDS SUMMARY | 2024-09-21 08:40 | XMS_ITS | Clinical Summary ---
Author Organization [facility] Address [address] [place] [address] Care Team Providers Care Tape Fastener Machine Operator Name Role Phone Shayan Prasad MD Primary [...] age to complete this topic Care Teams Tape Fastener Machine Operator Relationship Specialty Start Date End Date Shayan Prasad MD [address] [place] [address] Dr [address] DONAVAN Govea PCP - General 09/05/23
== END 2024-09-21 08:54 | disposition home or self-care (01) ==
LOC: HO.ENCR 08:32
PROVIDERS: Visit Provider Student in an Organized Health Care Education/Training Program
DX: R79.89 Other specified abnormal findings of blood chemistry (principal)
CPT/HCPCS: 99213

== ENCOUNTER → 2024-09-21 08:32 | Outpatient (BNVA) | payer OTHER, SELFPAY | PROVIDERS: Visit Provider Student in an Organized Health Care Education/Training Program | DX: R79.89 Other specified abnormal findings of blood chemistry (principal) | CPT/HCPCS: 99212 ==

== ENCOUNTER 2024-12-08 08:51 | Outpatient (AMB) | payer OTHER, SELFPAY ==
--- NOTE | 2024-12-08 08:53 | MHC.PC.OV ---
Vital Signs 12/08/24 08:54 12/08/24 09:26 Height 5 ft 6 in Weight 175 lb BMI 28.2 BP 122/78 128/82 Blood Pressure Location Lt brachial Lt brachial Position Sitting Sitting Pulse 71 Pulse Source Pulse Oximeter Pulse Oximetry (%) 96 Oxygen Delivery Method Room Air Intake Visit Reasons: HLD/elevated bp/PE Business Editor Required: No Accompanied by: Self / Same As Patient Allergies No Known Allergies (No Known Allergies*) Allergy (Verified 12/08/24 09:02) Medication List - Last Reconciled 12/08/24 by JUS Oneil apixaban (Eliquis) 5 mg PO BID atorvastatin 10 mg PO BEDTIME buprenorphine-naloxone 8-2 mg (Suboxone) 2 film sublingual DAILY lisinopril 5 mg PO DAILY sildenafil (Viagra) 50 mg PO DAILY PRN Tobacco use date assessed: 12/08/24 Dental Screening Dental Screen Date: 12/08/24 Did you have a dental visit in the last 12 months?: Yes Did you have a dental problem in the last 6 months where you did not have access to dental care?: No Was dental information given to patient?: Patient has dentist HPI HLD/elevated bp/PE HPI Details The patient is a 54-year-old male with significant past medical history of PE, low testosterone, elevated blood pressure readings, mixed hypercholesterolemia, and impaired fasting glucose The patient has a history of hyperlipidemia, with recent lab results showing significant improvement. Triglycerides decreased from 253 mg/dL to 148 mg/dL, and total cholesterol reduced from 227 mg/dL to 183 mg/dL. Low-density lipoprotein (LDL) cholesterol decreased from 121 mg/dL to 113 mg/dL, while high-density lipoprotein (HDL) cholesterol increased from 36 mg/dL to 41 mg/dL. The patient also has a history of elevated blood pressure, with a current blood pressure reading of 128/82 mmHg, which is well-controlled. The patient reports feeling tired and has a history of mild sleep apnea and does not fit the criteria for a CPAP machine although he received a CPAP machine from his brother that he has not attempted to used as yet. He wakes up on average of three times a night to urinate, which might be affects his sleep quality as well The patient has low testosterone levels, which may contribute to his fatigue. He is currently on Eliquis, which limits treatment options for testosterone replacement due to the risk of blood clots. The patient engages in a physically demanding job in [employer] but does not participate in structured exercise. He has access to exercise equipment at home and is encouraged to engage in regular cardiovascular exercise to improve his overall health and potentially increase testosterone levels naturally. [facility] Medical History Pulmonary embolism Surgical History No history of previous surgery Family History Mother Breast cancer Father High cholesterol Brother Colon cancer Social History Housing: House Alcohol intake: current Alcohol intake frequency: a few times a month Alcohol type: wine Patient Tobacco Use Status: Former Tobacco user Tobacco use type: Cigarette e-Cigarette/Vaping Use: Never Used Second Hand Smoke Exposure: Yes service: No Current occupational status: employed Cognitive needs: No Hearing needs: No Vision needs: No Questionnaire PHQ-9 Over the last 2 weeks, how often have you been bothered by any of the following problems? 1. Little interest or pleasure in doing things: not at all 2. Feeling down, depressed, or hopeless: not at all 3. Trouble falling or staying asleep, or sleeping too much: several days 4. Feeling tired or having little energy: several days 5. Poor appetite or overeating: not at all 6. Feeling bad about yourself - or that you are a failure or have let yourself or your family down: not at all 7. Trouble concentrating on things, such as reading the newspaper or watching television: not at all 8. Moving or speaking so slowly that other people could have noticed. Or the opposite - being so fidgety or restless that you have been moving around a lot more than usual: not at all 9. Thoughts that you would be better off or of hurting yourself in some way: not at all Total score: 2 Depression Screening Interpretation: Positive Depression Screening Done: Yes Source: Developed by Drs. uJan Jacobson, Vanita B.W. Ryne Bustillos and colleagues, with an educational edwin from [employer]. Thrive Questionnaire Date Thrive assessed: 08/26/24 I am a: Patient What is your living situation today?: I have a steady place to live Within the past 12 months, did the food you bought not last and you didn't have the money to get more?: Never true Within the past 12 months, did you worry whether your food would run out before you got money to buy more?: Never true Do you have trouble paying for medicines?: No Do you have trouble getting transportation to medical appointments?: No Do you have trouble paying your heating and electricity bill?: No Do you have trouble taking care of your child, family member or friend?: No Do you have trouble with day-to-day activities such as bathing, preparing meals, shopping, managing finances, etc.?: No Are you currently unemployed and looking for a job?: No Are you interested in more education?: No Please select the resources that you would like help with: None Currently or been in a relationship where the following occur: No concerns reported THRIVE Score: 0 AUDIT C Alcohol Use Questionnaire (AUDIT-C) 2. How many drinks containing alcohol do you have on a typical day when you are drinking?: 1 or 2 Total Score: 0 LOVE-7 AMB Questionnaire LOVE-7 Date LOVE - 7 assessed: 08/26/24 Feeling nervous, anxious, or on edge: 2 = More than half the days Not being able to stop or control worryin = Not at all Worrying too much about different things: 0 = Not at all Trouble relaxin = Several days Being so restless that it is hard to sit still: 0 = Not at all Becoming easily annoyed or irritable: 1 = Several days Feeling afraid as if something awful might happen: 0 = Not at all Total LOVE-7 score (0-4 normal; 5-9 mild; 10-14 moderate; 15-21 severe): 4 Source: Developed by Drs. Juan Jacobson, Ryne Arango and colleagues, with an educational edwin from [employer]. Review of Systems Const Denies chills, Reports daytime sleepiness, Reports fatigue, Denies fever(s), Denies headache(s), Denies malaise and Denies weakness Eyes Denies blurry vision, Denies change in vision, Denies irritation and Denies itchy eyes ENT Denies dysphagia, Denies dizziness, Denies otalgia, Denies headache(s), Denies nasal congestion, Denies neck pain, Denies odynophagia and Denies sore throat Card Denies rapid heart rate, Denies irregular heart rhythm, Denies palpitations and Denies dyspnea Resp Denies chest congestion, Denies cough, Denies dyspnea and Denies wheezing GI Denies abdominal pain, Denies bloating, Denies constipation, Denies dysphagia, Denies heartburn, Denies diarrhea, Denies nausea, Denies odynophagia and Denies vomiting Denies hematuria, Denies difficulty urinating, Denies dysuria, Denies urinary frequency and Denies urinary urgency Musc Denies back pain, Denies arthralgias, Denies joint swelling, Denies muscle weakness and Denies neck pain Skin/Breast Denies change in pigmentation, Denies lesions, Denies rash and Denies unusual bruising Neuro Denies dizziness, Denies headache(s), Denies paresthesias and Denies weakness Endo Reports fatigue and Denies palpitations Aller/Immun Denies itchy eyes and Denies wheezing Physical exam (Primary Care) Vital Signs: Last Vital Signs Pulse 71 12/08/24 08:54 BP 122/78 12/08/24 08:54 Pulse Ox 96 12/08/24 08:54 Oxygen Delivery Method Room Air 12/08/24 08:54 BMI result Body Mass Index 28.2 Tobacco/Smoking Status: Tobacco use Status Tobacco use date assessed 12/08/24 12/08/24 08:59 Patient Tobacco Use Status Former Tobacco user 12/08/24 08:59 Tobacco use type Cigarette 12/08/24 08:59 e-Cigarette/Vaping Use Never Used 12/08/24 08:59 PHQ-9: PHQ-9 Score PHQ-9: Total score 2 12/08/24 08:59 Depression Screening Interpretation: Positive Thrive Assessment: Date of Thrive Assessment Date Thrive assessed 08/26/24 12/08/24 08:59 Currently or been in a relationship where the following occur: No concerns reported Const General: cooperative, healthy appearing, comfortable and no acute distress Orientation/consciousness: patient oriented x3 HENMT Head: Yes normocephalic Ears: hearing grossly normal bilaterally General nose exam: Normal external nose present Eyes General: appearance normal, both eyes and all related structures Conjunctivae: conjunctivae normal Neck Neck: Yes full ROM and Yes no lymphadenopathy Resp Effort & Inspection: normal respiratory effort Auscultation: clear to auscultation bilaterally, no crackles, no rales, no rhonchi and no wheezes Cardio Rate: regular rate Rhythm: regular rhythm Skin General skin exam: no rashes or lesions noted Neuro General: patient oriented x3 Gait exam (Neuro): Normal gait present Extrem General: Yes normal to inspection, Yes full ROM and No edema Psych Affect: normal affect Attitude: cooperative Insight: Good insight present (Psych) Judgement: Good judgement present (Psych) Results Reviewed Results Reviewed: Laboratory Tests 08/31/24 08/31/24 07:25 07:28 Sodium 142 Potassium 4.7 Chloride 107 Carbon Dioxide 28 Anion Gap 12 BUN 22 H Creatinine 0.83 Estimated GFR > 60 Fasting Glucose 116 H Estimat Average Glucose 111 Hemoglobin A1c % 5.5 Calcium 9.1 D Iron 103 TIBC 272 % Saturation 38 Unsat Iron Binding 169 Total Bilirubin 0.7 AST 27 ALT 25 Alkaline Phosphatase 62 Total Protein 7.6 Albumin 4.5 Triglycerides 148 Cholesterol 183 LDL Cholesterol, Calc 113 H HDL Cholesterol 41 25-OH Vitamin D Total 36.3 TSH 1.96 FSH 11.3 Luteinizing Hormone 2.7 Prolactin 2.7 Testosterone Level 327 Free Testoster w SHBG 35.6 L Bioavail Testosterone 73.3 L Sex Hormone Bind Glob 40 Urine Color Yellow Urine Appearance Clear Urine pH 6.0 Ur Specific [place] 1.020 Urine Protein Negative Urine Glucose (UA) Negative Urine Ketones Negative Urine Blood Negative Urine Nitrite Negative Ur Leukocyte Esterase Negative Coding Level of Care Code Est Pt Level 3 (11574) Diagnoses Elevated blood pressure reading in office with diagnosis of hypertension I10 Mixed hypercholesterolemia and hypertriglyceridemia E78.2 Chronic pulmonary embolism without acute cor pulmonale, unspecified pulmonary embolism type I27.82 Pulmonary embolism type: unspecified Chronicity: chronic Acute cor pulmonale presence: without acute cor pulmonale Impaired fasting glucose R73.01 Low testosterone R79.89 Time Spent (min) 36 Assessment & Plan Assessment & Plan (1) Elevated blood pressure reading in office with diagnosis of hypertension: Code(s): I10 - Essential (primary) hypertension Category: Medical Plan: Patient blood pressure was 128/82 within goal Reinforced low-salt diet Continue lisinopril 5 mg daily (2) Mixed hypercholesterolemia and hypertriglyceridemia: Code(s): E78.2 - Mixed hyperlipidemia Category: Medical Plan: Triglycerides 148, total cholesterol 183, LDL 113, HDL 41 Discussed lifestyle modifications including dietary changes and physical activity Continue atorvastatin 10 mg at bedtime We will recheck lipid panel in 3 months (3) Pulmonary embolism: Code(s): I26.99 - Other pulmonary embolism without acute cor pulmonale Category: Medical Qualifiers: Pulmonary embolism type: unspecified Chronicity: chronic Acute cor pulmonale presence: without acute cor pulmonale Qualified Code(s): I27.82 - Chronic pulmonary embolism Plan: Continue apixaban 5 mg b.i.d. Encouraged physical activity (4) Impaired fasting glucose: Code(s): R73.01 - Impaired fasting glucose Category: Medical Plan: Fasting low-salt 116 and A1c 5.5% Reinforced low sugar diet and activity as tolerated We will repeat fasting glucose in 3 months (5) Low testosterone: Code(s): R79.89 - Other specified abnormal findings of blood chemistry Category: Medical Plan: Testosterone level was noted to be a low. The patient is on apixaban due to history of PE. He is not a good candidate for testosterone treatments due to the increased risk of forming a blood clot. Follow up with Endocrine as scheduled Orders: Orders Complete Blood Count Auto Diff 3 Months E78.2 - Mixed hyperlipidemia, I10 - Essential (primary) hypertension, I27.82 - Chronic pulmonary embolism, R73.01 - Impaired fasting glucose, R79.89 - Other specified abnormal findings of blood chemistry Lipid Panel 3 Months E78.2 - Mixed hyperlipidemia, I10 - Essential (primary) hypertension, I27.82 - Chronic pulmonary embolism, R73.01 - Impaired fasting glucose, R79.89 - Other specified abnormal findings of blood chemistry Hemoglobin A1c 3 Months E78.2 - Mixed hyperlipidemia, I10 - Essential (primary) hypertension, I27.82 - Chronic pulmonary embolism, R73.01 - Impaired fasting glucose, R79.89 - Other specified abnormal findings of blood chemistry Comprehensive Atlas. Panel Fast 3 Months E78.2 - Mixed hyperlipidemia, I10 - Essential (primary) hypertension, I27.82 - Chronic pulmonary embolism, R73.01 - Impaired fasting glucose, R79.89 - Other specified abnormal findings of blood chemistry TSH reflex Free T4 3 Months E78.2 - Mixed hyperlipidemia, I10 - Essential (primary) hypertension, I27.82 - Chronic pulmonary embolism, R73.01 - Impaired fasting glucose, R79.89 - Other specified abnormal findings of blood chemistry UA CC w/rflx Micro + Cult 3 Months E78.2 - Mixed hyperlipidemia, I10 - Essential (primary) hypertension, I27.82 - Chronic pulmonary embolism, R73.01 - Impaired fasting glucose, R79.89 - Other specified abnormal findings of blood chemistry Vitamin D 25-OH Total 3 Months E78.2 - Mixed hyperlipidemia, I10 - Essential (primary) hypertension, I27.82 - Chronic pulmonary embolism, R73.01 - Impaired fasting glucose, R79.89 - Other specified abnormal findings of blood chemistry
[2024-12-08 08:54] VITALS: BP 122/78; PULSE 71; O2SAT 96; BMI 28.2
--- OUTSIDE RECORDS SUMMARY | 2024-12-08 09:11 | XMS_ITS | Clinical Summary ---
Author Organization [facility] Address [address] [place] [address] Care Team Providers Care Loading Machine Operator Name Role Phone Unavailable Primary Care Provider [...] 07/06/2015 Fecal DNA 07/06/2015 Flexible Sigmoidoscopy 07/06/2015 Imm-Pneumococcal 50+ (1 of 1 - PCV) 2020 Imm-Zoster, Recombinant (1 of 2) 2020 Gtd-CTGOB-37 (5 - season) 2023 02/24/2022, 02/24/2021, 08/06/2020, Additional history exists Alcohol and Drug Screen 04/15/2024 Depression Annual Screen 04/15/2024 Imm-Influenza (#1) 2024 01/30/2022, 0 05/28/2019, 03/07/2018, Additional history exists Imm-DTaP/Tdap/Td (2 - Td or Tdap) 12/04/2027 018 Insurance [facility] Member Subscriber Plan / Payer (Ef fective 2022-Present) Name:ParkinsonSy maddoxald Relation to Subscriber:Self Name:Domo Parkinson Payer ID:[id number] Group ID:[id number] Type:Medicaid Address: [facility] [address] [place] [address]
--- OUTSIDE RECORDS SUMMARY | 2024-12-08 09:11 | XMS_ITS | Clinical Summary ---
Author Organization [facility] Address [address] [place] [address] Care Team Providers Care Supervisor Frame Sample And Pattern Name Role Phone Christopher Pelayo MD Primary Care Provider [phone] Allergies No known active allergies Medications Medication [...] 83 11/14/2021 9:10 AM EDT Temperature 36.5 C (97.7 F) 11/14/2021 9:10 AM EDT Respiratory Rate - - Oxygen Saturation 100% [...] (1 of 2) 2020 Influenza Vaccine (#1) 2024 Pneumococcal Vaccine Aged Out No long er eligible based on patient's age to complete this topic RSV Ped < 20 months Aged Out No longe r eligible based on patient's age to complete this topic Care Teams Supervisor Frame Sample And Pattern Relationship Specialty Start Date End Date Christopher Pelayo MD [address] [place] [address] [place] [address] PCP - General Internal Medicine 12/13/20
--- OUTSIDE RECORDS SUMMARY | 2024-12-08 09:11 | XMS_ITS | Clinical Summary ---
Author Organization [facility] Address [address] [place] [address] Care Team Providers Care Slurry Blender Name Role Phone Shayan Prasad MD Primary [...] Panel) 03/17/2022 Colorectal Cancer Screening: Colonoscopy 03/17/2022 HIV Screening 03/17/2022 Hepatitis C Screening 03/17/2022 Social Influencers of Health Screening 03/17/2022 COVID-19 Vaccine (1 - 2023-2 5 season) 2023 Depression Screening 04/15/2024 Influenza Vaccine (#1) 2024 HIB Vaccines Aged Out No longer [...] age to complete this topic Care Teams Slurry Blender Relationship Specialty Start Date End Date Shayan Prasad MD [address] [place] [address] [address] [place], [place] PCP - General 09/05/23
[2024-12-08 09:26] VITALS: BP 128/82
== END 2024-12-08 09:28 | disposition home or self-care (01) ==
LOC: HO.HMCH 08:51
DX: I10 Essential (primary) hypertension (principal); E78.2 Mixed hyperlipidemia; I27.82 Chronic pulmonary embolism; R73.01 Impaired fasting glucose; R79.89 Other specified abnormal findings of blood chemistry

== ENCOUNTER → 2024-12-08 08:51 | Outpatient (BNVA) | payer OTHER, SELFPAY | DX: E78.2 Mixed hyperlipidemia (principal); R73.01 Impaired fasting glucose; G47.30 Sleep apnea, unspecified; I10 Essential (primary) hypertension; I27.82 Chronic pulmonary embolism; R79.89 Other specified abnormal findings of blood chemistry | CPT/HCPCS: 99212 ==

== ENCOUNTER 2025-03-23 09:12 | Outpatient (AMB) | payer OTHER, SELFPAY ==
[2025-03-23 09:16] VITALS: BP 142/98; PULSE 88; RESP 18; O2SAT 96; BMI 27.9
--- NOTE | 2025-03-23 09:16 | MHC.PC.OV ---
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 Required: No Accompanied by: Self / Same As Patient Allergies No Known Allergies (No Known Allergies*) Allergy (Verified 03/23/25 09:26) Medication List - Last Reconciled 03/23/25 by JUS Oneil apixaban (Eliquis) 5 mg PO BID atorvastatin 10 mg PO BEDTIME buprenorphine-naloxone 8-2 mg (Suboxone) 2 film sublingual DAILY lisinopril 5 mg PO DAILY sildenafil (Viagra) 50 mg PO DAILY PRN Tobacco use date assessed: 03/23/25 Dental Screening Dental Screen Date: 03/23/25 Did you have a dental visit in the last 12 months?: Yes Did you have a dental problem in the last 6 months where you did not have access to dental care?: No Was dental information given to patient?: Patient has dentist HPI elevated BP/PE/HLD HPI Details Patient is presenting for htn, PEs, HLD, impaired fasting glucose follow up Patient has not completed preordered labs as yet-reports that he will get these done this week He reports his blood pressure has been staying high, with a recent reading of 159/99 mmHg at the dentist's office yesterday. He is currently taking lisinopril 5 mg. He also reports his loves salt, which is mostly like contributing to his elevated blood pressure. He admits to a high salt intake. He had a cup of coffee prior to this appointment and also before his dental visit. He has not yet completed his fasting lab work. Health Maintenance - Patient was advised to complete pending fasting lab work. - Discussed reducing salt intake. Social History - Diet: Reports a high salt intake. - Substance Use: He consumed coffee prior to the appointment. Results HPI Comments History of Present Illness Details History of Present Illness The patient is a 54 year old male presenting for follow-up of elevated blood pressure. He reports his blood pressure has been staying high, with a recent reading of 159/99 mmHg at the dentist's office yesterday. He is currently taking blood pressure medication, though his suggested he may need an increased dose to 10 mg. He admits to a high salt intake. He had a cup of coffee prior to this appointment and also before his dental visit. He has not yet completed his fasting lab work. Health Maintenance - Patient was advised to complete pending fasting lab work. - Discussed reducing salt intake. Social History - Diet: Reports a high salt intake. - Substance Use: He consumed coffee prior to the appointment. Results [facility] Medical History Pulmonary embolism Surgical History No history of previous surgery Family History Mother Breast cancer Father High cholesterol Brother Colon cancer Social History Housing: House Alcohol intake: current Alcohol intake frequency: a few times a month Alcohol type: wine Patient Tobacco Use Status: Former Tobacco user Tobacco use type: Cigarette e-Cigarette/Vaping Use: Never Used Second Hand Smoke Exposure: Yes service: No Current occupational status: employed Cognitive needs: No Hearing needs: No Vision needs: No Questionnaire PHQ-9 Over the last 2 weeks, how often have you been bothered by any of the following problems? Depression Screening Interpretation: Positive Depression Screening Done: Yes Source: Developed by Drs. Juan Jacobson, Vanita Bustillos, Ryne Quiles and colleagues, with an educational edwin from [employer]. Thrive Questionnaire Date Thrive assessed: 03/23/25 I am a: Patient What is your living situation today?: I have a steady place to live Within the past 12 months, did the food you bought not last and you didn't have the money to get more?: Never true Within the past 12 months, did you worry whether your food would run out before you got money to buy more?: Never true Do you have trouble paying for medicines?: No Do you have trouble getting transportation to medical appointments?: No Do you have trouble paying your heating and electricity bill?: No Do you have trouble taking care of your child, family member or friend?: No Do you have trouble with day-to-day activities such as bathing, preparing meals, shopping, managing finances, etc.?: No Are you currently unemployed and looking for a job?: No Are you interested in more education?: No Please select the resources that you would like help with: None Currently or been in a relationship where the following occur: No concerns reported THRIVE Score: 0 LOVE-7 AMB Questionnaire LOVE-7 Date LOVE - 7 assessed: 08/26/24 Source: Developed by Drs. Juan Jacobson, Vanita Bustillos, Ryne Quiles and colleagues, with an educational edwin from [employer]. Review of Systems Narrative Review of Systems - Constitutional: Reports feeling good. - Cardiovascular: Reports elevated blood pressure readings at home. Const Denies chills, Reports daytime sleepiness, Reports fatigue, Denies fever(s), Denies headache(s), Denies malaise and Denies weakness Eyes Denies blurry vision, Denies change in vision, Denies irritation and Denies itchy eyes ENT Denies dysphagia, Denies dizziness, Denies otalgia, Denies headache(s), Denies nasal congestion, Denies neck pain, Denies odynophagia and Denies sore throat Card Denies rapid heart rate, Denies irregular heart rhythm, Denies palpitations and Denies dyspnea Resp Denies chest congestion, Denies cough, Denies dyspnea and Denies wheezing GI Denies abdominal pain, Denies bloating, Denies constipation, Denies dysphagia, Denies heartburn, Denies diarrhea, Denies nausea, Denies odynophagia and Denies vomiting Denies hematuria, Denies difficulty urinating, Denies dysuria, Denies urinary frequency and Denies urinary urgency Musc Denies back pain, Denies arthralgias, Denies joint swelling, Denies muscle weakness and Denies neck pain Skin/Breast Denies change in pigmentation, Denies lesions, Denies rash and Denies unusual bruising Neuro Denies dizziness, Denies headache(s), Denies paresthesias and Denies weakness Endo Reports fatigue and Denies palpitations Aller/Immun Denies itchy eyes and Denies wheezing Physical exam (Primary Care) Vital Signs: Last Vital Signs Pulse 88 03/23/25 09:16 Resp 18 03/23/25 09:16 BP 134/98 H 03/23/25 09:16 Pulse Ox 96 03/23/25 09:16 Oxygen Delivery Method Room Air 03/23/25 09:16 BMI result Body Mass Index 27.9 Tobacco/Smoking Status: Tobacco use Status Tobacco use date assessed 03/23/25 03/23/25 09:24 Patient Tobacco Use Status Former Tobacco user 03/23/25 09:24 Tobacco use type Cigarette 03/23/25 09:24 e-Cigarette/Vaping Use Never Used 03/23/25 09:24 Depression Screening Interpretation: Positive Thrive Assessment: Date of Thrive Assessment Date Thrive assessed 03/23/25 03/23/25 09:24 Currently or been in a relationship where the following occur: No concerns reported Narrative Physical Exam - Vitals: Blood pressure was 142/98 mmHg. Const General: cooperative, healthy appearing, comfortable and no acute distress Orientation/consciousness: patient oriented x3 HENMT Head: Yes normocephalic Ears: hearing grossly normal bilaterally General nose exam: Normal external nose present Eyes General: appearance normal, both eyes and all related structures Conjunctivae: conjunctivae normal Neck Neck: Yes full ROM and Yes no lymphadenopathy Resp Effort & Inspection: normal respiratory effort Auscultation: clear to auscultation bilaterally, no crackles, no rales, no rhonchi and no wheezes Cardio Rate: regular rate Rhythm: regular rhythm Skin General skin exam: no rashes or lesions noted Neuro General: patient oriented x3 Gait exam (Neuro): Normal gait present Extrem General: Yes normal to inspection, Yes full ROM and No edema Psych Affect: normal affect Attitude: cooperative Insight: Good insight present (Psych) Judgement: Good judgement present (Psych) Coding Level of Care Code Est Pt Level 3 (58549) Diagnoses Hypertension, unspecified type I10 Hypertension type: unspecified Mixed hypercholesterolemia and hypertriglyceridemia E78.2 Chronic pulmonary embolism without acute cor pulmonale, unspecified pulmonary embolism type I27.82 Pulmonary embolism type: unspecified Chronicity: chronic Acute cor pulmonale presence: without acute cor pulmonale Impaired fasting glucose R73.01 Time Spent (min) 26 Assessment & Plan Assessment & Plan (1) HTN (hypertension): Code(s): I10 - Essential (primary) hypertension Category: Medical Qualifiers: Hypertension type: unspecified Qualified Code(s): I10 - Essential (primary) hypertension Plan: Blood pressure 142/98-systolic goal less than 130 mm Hg Reinforced low-salt diet Increase lisinopril from 5 mg to 10 mg and we will have the patient return in a month for re-evaluation (2) Mixed hypercholesterolemia and hypertriglyceridemia: Code(s): E78.2 - Mixed hyperlipidemia Category: Medical Plan: Patient has not completed preordered labs as yet Continue atorvastatin 10 mg at bedtime We will advise when labs resulted (3) Pulmonary embolism: Code(s): I26.99 - Other pulmonary embolism without acute cor pulmonale Category: Medical Qualifiers: Pulmonary embolism type: unspecified Chronicity: chronic Acute cor pulmonale presence: without acute cor pulmonale Qualified Code(s): I27.82 - Chronic pulmonary embolism Plan: Denies chest pain and shortness of Breath Continue apixaban 5 mg b.i.d. (4) Impaired fasting glucose: Code(s): R73.01 - Impaired fasting glucose Category: Medical Plan: Encouraged low sugar/carbohydrate diet We will advise when Labs resulting Plan Plan Patient was informed and verbally consented to the use of an ambient scribe for clinic note documentation during this visit. 1. Essential Hypertension The patient presents with persistently elevated blood pressure, with a reading of 159/99 mmHg at a recent dental visit and 142/98 mmHg in the office today. Given these readings, the blood pressure medication will be increased to 10 mg. The patient is advised to continue monitoring his blood pressure at home. He is instructed to complete his pending fasting lab work. A follow-up appointment is scheduled in four weeks to recheck his blood pressure and review the lab results. Discussion Notes I discussed with the patient his persistently elevated blood pressure readings at home, at the dentist's office, and in-clinic today, which measured 142/98 mmHg. I agreed with his 's suggestion and we will increase his blood pressure medication to 10 mg. I instructed him to continue monitoring his blood pressure at home and to complete his outstanding fasting lab work. I have scheduled a follow-up appointment with me in four weeks to re-evaluate his blood pressure and review the lab results at that time. Patient Instructions - Your new prescription for the increased dose of your blood pressure medication has been sent to the pharmacy. - Please continue to check your blood pressure at home and contact us if you have any concerns. - Please go to the lab to get your blood work done. - You will need to fast before this blood work. - Please follow up in one month to recheck your blood pressure and review your lab results. - Try to reduce your salt intake. Medications: New lisinopril 10 mg PO DAILY 30 tabs 3RF Discontinued lisinopril Discontinued Reason: Duplicate 5 mg PO DAILY 90 tabs 1RF I10 - Essential (primary) hypertension
== END 2025-03-23 09:39 | disposition home or self-care (01) ==
DX: I10 Essential (primary) hypertension (principal); E78.2 Mixed hyperlipidemia; I27.82 Chronic pulmonary embolism; R73.01 Impaired fasting glucose

== ENCOUNTER → 2025-03-23 09:12 | Outpatient (BNVA) | payer OTHER, SELFPAY | DX: I10 Essential (primary) hypertension (principal); E78.2 Mixed hyperlipidemia; I27.82 Chronic pulmonary embolism; R73.01 Impaired fasting glucose; Z79.899 Other long term (current) drug therapy | CPT/HCPCS: 99212 ==